=== PATIENT | male | born 1980 | race Caucasian/White ===

== ENCOUNTER 2016-07-08 05:32 | Day surgery (SDC) | payer OTHER ==
[~2016-07-08] VITALS: Ht 157.5 cm; Wt 84.0 kg
[2016-07-08] VITALS (9 sets, daily range): BP systolic 106–133; BP diastolic 54–76; PULSE 62–80; RESP 17–20; Ht 157.5 cm; Wt 84.0 kg
[~2016-07-08 05:32] MED LIST: DOCU-144 PO; DULR PR; HYDR2TAB15 PO; MULTI PO; MYL80 PO; ZOLP5TAB PO
[2016-07-08] MEDS ORDERED: POLYMYXIN/BACITRACIN 1L IRRIG ONE (06:55)
[2016-07-08] MEDS ORDERED: BUPIVACAINE 0.5% (SDV) 30 ML INJ ONE (07:46)
[2016-07-08] MEDS ORDERED: LIDOCAINE 1% (STERILE-PAK) 30 ML INJ ONE (07:46)
[2016-07-08] MEDS ORDERED: MIDAZOLAM 1 MG/ML 2 ML INJ ONE ×2 (07:54)
[2016-07-08] MEDS ORDERED: PROPOFOL 20 ML ONE ×2 (07:54→08:42)
[2016-07-08] MEDS ORDERED: FENTAnyl 50 MCG/ML VIAL ONE (07:54)
--- NOTE | 2016-07-08 07:55 | HPN ---
Date/Time of Note Date/Time of Note DATE: 07/08/16 TIME: 07:55 Interval H&P Admission Note Pt. seen H&P reviewed: No system changes COOPER HOPE DPM Jul 08, 2016 07:55
[2016-07-08] MEDS ORDERED: CEFAZOLIN 1 GM INJ ONE (08:10)
[2016-07-08] MEDS ORDERED: MEPERIDINE 25 MG INJ IV PRN (08:30)
[2016-07-08] MEDS ORDERED: HYDROmorphONE (0.2 MG/ML) 10ML SYG IV PRN ×3 (08:30)
[2016-07-08] MEDS ORDERED: DIPHENHYDRAMINE 50 MG INJ IV PRN (08:30)
[2016-07-08] MEDS ORDERED: ONDANSETRON 4 MG INJ IV PRN (08:30)
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
--- NOTE | 2016-07-08 17:03 | RADRPT ---
PROCEDURE: Intraoperative imaging of the right ankle with fluoroscopy. CLINICAL INDICATION: Right ankle pain. Hardware removal. Intraoperative. TECHNIQUE: 5 images of the right ankle were obtained in the operating room with an image intensifi er. No radiologist was in attendance. 17.9 seconds of fluoroscopy time was used. COMPARISON: Plain radiographs of the right ankle dated 10/30/2015. FINDINGS: Images demonstrate removal of the 4 screws from the distal right tibia. IMPRESSION: 1. Intraoperative imaging of the right ankle. RPTAT: QQ .Phoenix Koehler MD, MD Date Time Electronically viewed and signed by .Phoenix Koehler MD, MD on 07/08/2016 17:03 .R/
--- NOTE | 2016-07-08 17:05 | RADRPT ---
PROCEDURE: XR Right Ankle. CLINICAL INDICATION: Right ankle pain. TECHNIQUE: 2 views. Frontal and lateral. COMPARISON: Intraoperative imaging done earlier the same day. Right ankle radiographs dated 10/29. FINDINGS: There are screw holes at the site of removal of the 4 screws from the distal right tibia. There is a healed fracture of the distal right tibia. There is no new fracture and there is no disl ocation. Articular surfaces are intact. There is no lytic or blastic lesion. There is medial soft tissue swelling overlying the distal tibia. IMPRESSION: 1. Satisfactory postoperative appearance with removal of the hardware from the distal tibia. 2. Soft tissue swelling medially at the site of surgery. RPTAT: QQ .Phoenix Koehler MD, MD Date Time Electronically viewed and signed by .Phoenix Koehler MD, MD on 07/08/2016 17:04 .R/
== END 2016-07-08 10:42 | disposition home or self-care (01) ==
LOC: SDS 05:32
PROVIDERS: ATTEND Podiatrist Foot & Ankle Surgery
DX: T84.84XA Pain due to internal orthopedic prosthetic devices, implants and grafts, initial encounter (principal); Y83.8 Other surgical procedures as the cause of abnormal reaction of the patient, or of later complication, without mention of misadventure at the time of the procedure; Y92.89 Other specified places as the place of occurrence of the external cause
CPT/HCPCS: 20680; 73600; 73610; 88300; J0690; J2250; J3010; L3260; Z7512; Z7610